=== PATIENT | female | born 1990 | race Two or more races ===

== ENCOUNTER → 2020-03-04 | Emergency (ER) | payer OTHER ==
[~2020-03-04] VITALS: Ht 157.5 cm; Wt 68.9 kg
[~2020-03-04] MED LIST: FOLIC ACID0.8 M1; PRENATABS FA T1 EACH
== END | disposition home or self-care (01) ==
LOC: ER 09:32
DX: O46.8X2 Other antepartum hemorrhage, second trimester (principal); Z03.818 Encounter for observation for suspected exposure to other biological agents ruled out; Z3A.16 16 weeks gestation of pregnancy